=== PATIENT | male | born 2005 | race Caucasian/White ===

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

== ENCOUNTER 2025-07-17 09:09 | Outpatient (CLI) | payer MEDICAID ==
--- NOTE | 2025-07-17 11:00 | RADIOLOGY REPORT ---
CLINICAL HISTORY: UNSPECIFIED INJURY OF RIGHT LOWER LEG, INITIAL ENCOUNTER COMPARISON: No prior imaging of the right knee was available for comparison at the time of dictation. TECHNIQUE: Multisequence multiplanar MRI images of the right knee were obtained without contrast. FINDINGS: Cruciate ligaments: Marked Edema and indistinctness of the fibers of the ACL consistent with full-thickness or near full-thickness tear. PCL is intact. Extensor mechanism: Quadriceps mechanism and patellar tendon are intact. Moderate edema in Hoffa's fat pad, likely secondary to the recent injury. Collateral ligaments: There is marked edema along the course of the medial collateral ligament with full-thickness tear of the lateral collateral ligament from its tibial attachment and associated laxity of the MCL. Mild sprain of the lateral collateral ligament near its femoral attachment. Menisci: Focal blunting of the body of the lateral meniscus near the body/anterior horn junction, consistent with an obliquely oriented vertical flap tear involving zones 3 and 2. There is edema at the meniscocapsular junction of the posterior horn of the medial meniscus, possible meniscocapsular injury. Cartilage: No focal chondral defect or significant chondromalacia. Bones: There is a focal marrow contusion of the weight-bearing surface of the lateral femoral condyle with associated mild cortical depression. There is also a focal marrow contusion at the posterior aspect of the lateral tibial plateau with small cortical deformity consistent with a subtle nondisplaced, nondepressed fracture. Joint fluid: Moderate joint effusion. There is heterogeneous signal in the lateral aspect of the suprapatellar recess, may be due to synovitis and/or blood products. Other: Minimal popliteal cyst. IMPRESSION: 1. ACL tear. 2. MCL tear. 3. LCL sprain. 4. Focal marrow contusions at the weight-bearing surface of the lateral femoral condyle and posterior aspect of the lateral tibial plateau with mild cortical depression at the weight-bearing surface of the lateral femoral condyle and small nondisplaced, nondepressed fracture at the posterior aspect of the lateral tibial plateau. 5. Lateral meniscal tear. 6. Possible meniscocapsular injury at the posterior horn of the medial meniscus. 7. Additional findings as detailed above.
== END 2025-07-17 23:59 | disposition home or self-care (01) ==
LOC: MRI02 09:09
PROVIDERS: ATTEND Emergency Medicine
DX: S83.411A Sprain of medial collateral ligament of right knee, initial encounter (principal); S83.281A Other tear of lateral meniscus, current injury, right knee, initial encounter; S83.421A Sprain of lateral collateral ligament of right knee, initial encounter; R60.0 Localized edema; S89.91XA Unspecified injury of right lower leg, initial encounter; X58.XXXA Exposure to other specified factors, initial encounter; Y93.89 Activity, other specified; Y92.89 Other specified places as the place of occurrence of the external cause; Y99.8 Other external cause status
CPT/HCPCS: 73721